=== PATIENT | male | born 1970 | race Caucasian/White ===

== ENCOUNTER 2016-11-16 18:39 | Emergency (ER) | payer MEDICARE, MEDICAID ==
[2016-11-16] MEDS ORDERED: KETOROLAC 60 MG/2 ML VIAL IM STA (20:16)
[2016-11-16] MEDS ORDERED: KETOROLAC 60 MG/2 ML VIAL ONE (20:20)
--- NOTE | 2016-11-16 20:43 | ED Physician Documentation ---
PD HPI BACK PAIN - Stated complaint Stated Complaint: BACK PX - Chief complaint Chief Complaint: Back Pain - History obtained from History obtained from: Patient - History of Present Illness Timing - onset: How many days ago (5), Chronic Timing - details: Gradual onset, Still present Pain level max: 9 Pain level now: 3 Location: Lower, Right Quality: Pain, Spasm Associated symptoms: No: Fever, Weakness, Numbness, Incontinent of urine, Unable to urinate Similar symptoms before: Work up / diagnostics, Treatment Recently seen: Not recently seen - Additional information Additional information: Patient is a 46 year old male with mulitple ER visits and landy reports for narcotic abuse who is presenting to the emergency department for right lower back pain. patient states that he has a history of a buldging disc and chronic pain. Patient states that he fell sometime last week and he still has some nagging pain. patient denies any fevers, chills, nausea, vomiting, bladder or bowel incontinence. Review of Systems Constitutional: denies: Fever, Chills Eyes: denies: Loss of vision, Photophobia Ears: denies: Ear pain, Tinnitus/ringing, Foreign body Nose: denies: Rhinorrhea / runny nose, Congestion, Sinus pressure / pain Throat: denies: Sore throat GI: denies: Abdominal Pain, Nausea, Vomiting : denies: Dysuria, Frequency, Unable to Void, Incontinent Skin: denies: Rash, Abrasion (s), Laceration (s) Musculoskeletal: reports: Back pain, Extremity pain Neurologic: denies: Focal weakness, Numbness, Head injury Immunocompromised: denies: Immunocompromised PD PAST MEDICAL HISTORY - Past Medical History Past Medical History: Yes GI: Hepatitis Psych: Anxiety Musculoskeletal: Chronic back pain - Past Surgical History Past Surgical History: Yes - Present Medications Home Medications: Ambulatory Orders Medication Instructions Recorded Confirmed No Known Home Medications [No 11/16/16 11/16/16 Known Home Medications] - Allergies Allergies/Adverse Reactions: Allergies Allergy/AdvReac Type Severity Reaction Status Date / Time No Known Drug Allergies Allergy Verified 05/19/16 20:45 - Social History Does the pt smoke?: Yes Smoking Status: Current every day smoker Does the pt drink ETOH?: No Does the pt have substance abuse?: No - Immunizations Immunizations are current?: Yes - POLST Patient has POLST: No PD ED PE NORMAL - Vitals Vital signs reviewed: Yes - General General: Alert and oriented X 3, No acute distress, Well developed/nourished - HEENT HEENT: Atraumatic, PERRL - Neck Neck: Supple, no meningeal sign, No bony TTP - Cardiac Cardiac: RRR, No murmur - Respiratory Respiratory: No respiratory distress - Abdomen Abdomen: Soft, Non tender, Non distended - Derm Derm: Normal color, Warm and dry, No rash - Extremities Extremities: No deformity, Normal ROM s pain, No edema - Neuro Neuro: Alert and oriented X 3, 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, Normal speech - Psych Psych: Normal mood, Normal affect PD ED PE EXPANDED - Back Back: Soft tissue tenderness (mild tenderness to palpation of right lower back, no ecchymosis no bruising) Results - Vitals Vitals: Vital Signs - 24 hr 11/16/16 11/16/16 18:47 20:53 Temperature 36.4 C L Heart Rate 74 82 Respiratory 18 16 Rate Blood Pressure 116/88 H 120/86 H O2 Saturation 100 99 Oxygen O2 Source Room air PD MEDICAL DECISION MAKING - ED course Complexity details: reviewed old records, reviewed results, re-evaluated patient , considered differential, d/w patient ED course: Patient was seen and examined at bedside. Patient had no traumatic findings or any type of neurological deficit. Patient was able to ambulate without any difficulty. patient was treated with toradol with good relief. Patient required no further work up at this time and was stable for discharge with outpatient follow up. Departure - Departure Disposition: 01 Home, Self Care Clinical Impression: Muscle spasm of back Condition: Good Instructions: ED Spasm Back No Trauma Follow-Up: primary,care provider [Other] - As Needed Comments: Your symptoms today are likely caused by an exacerbation of your chronic back pain. You should alternate between ice and heat for the pain and you can take motrin or tylenol as needed. You should follow up with your pmd this week for re-evaluation. You may return to the emergency department if necessary for new , worsening or uncontrollable symptoms. Discharge Date/Time: 11/16/16 20:54
[2016-11-16 20:54] VITALS: BP 120/86
== END 2016-11-16 20:54 | disposition home or self-care (01) ==
LOC: ED 18:39
DX: M62.830 Muscle spasm of back (principal); M54.5 Low back pain; G89.29 Other chronic pain; F17.200 Nicotine dependence, unspecified, uncomplicated
CPT/HCPCS: 96372; 99283

== ENCOUNTER 2016-11-17 00:10 | Emergency (ER) | payer MEDICARE, MEDICAID ==
[2016-11-17] MEDS ORDERED: ACETAMINOPHEN 500 MG TABLET PO STA (00:14)
[2016-11-17 00:16] VITALS: BP 125/83
--- NOTE | 2016-11-17 00:23 | ED Physician Documentation ---
PD HPI BACK PAIN - Stated complaint Stated Complaint: BACK PX - Chief complaint Chief Complaint: Back Pain - History obtained from History obtained from: Patient - History of Present Illness Timing - onset: Chronic Timing - details: Still present Location: Lower, Right Quality: Similar to prior episodes Associated symptoms: No: Fever, Weakness, Numbness, Incontinent of urine, Unable to urinate Recently seen: Emergency Dept - Additional information Additional information: Patient is a 46 year old male presenting for back pain. Patient was seen earlier in the evening for the same complaint. Patient denied any change in his complaints. Review of Systems Constitutional: denies: Fever, Chills Ears: denies: Ear pain, Drainage/discharge Nose: denies: Rhinorrhea / runny nose, Congestion Throat: denies: Dental pain / toothache, Oral lesions / sores : denies: Frequency, Hesitancy, Unable to Void, Incontinent Skin: denies: Rash, Lesions, Abrasion (s), Laceration (s) Musculoskeletal: reports: Back pain. denies: Extremity pain, Joint pain, Extremity swelling Neurologic: denies: Focal weakness, Numbness, Difficulty speaking Immunocompromised: denies: Immunocompromised PD PAST MEDICAL HISTORY - Past Medical History GI: Hepatitis Psych: Anxiety Musculoskeletal: Chronic back pain - Past Surgical History Past Surgical History: Yes - Present Medications Home Medications: Ambulatory Orders Medication Instructions Recorded Confirmed No Known Home Medications [No 11/16/16 11/16/16 Known Home Medications] - Allergies Allergies/Adverse Reactions: Allergies Allergy/AdvReac Type Severity Reaction Status Date / Time No Known Drug Allergies Allergy Verified 05/19/16 20:45 - Social History Does the pt smoke?: Yes Smoking Status: Current every day smoker Does the pt drink ETOH?: No Does the pt have substance abuse?: No - Immunizations Immunizations are current?: Yes - POLST Patient has POLST: No PD ED PE NORMAL - Vitals Vital signs reviewed: Yes - General General: Alert and oriented X 3, No acute distress - HEENT HEENT: Atraumatic, PERRL, Pharynx benign - Neck Neck: Supple, no meningeal sign - Respiratory Respiratory: No respiratory distress - Derm Derm: Normal color, Warm and dry - Extremities Extremities: No deformity, Normal ROM s pain, No edema - Neuro Neuro: Alert and oriented X 3, No motor deficit, No sensory deficit, Normal speech - Psych Psych: Normal mood, Normal affect Results - Vitals Vitals: Vital Signs - 24 hr 11/17/16 00:15 Temperature 37.0 C Heart Rate 92 Respiratory 16 Rate Blood Pressure 125/83 H O2 Saturation 97 Oxygen O2 Source Room air PD MEDICAL DECISION MAKING - ED course Complexity details: reviewed old records, re-evaluated patient, d/w patient ED course: patient was told that he would not be getting narcotics, benzos or muscle relaxers. tylenol was ordered and patient eloped out of the emergency department Departure - Departure Disposition: Home, Self Care Clinical Impression: Back pain Condition: Good
== END 2016-11-17 00:27 | disposition left against medical advice (07) ==
LOC: ED 00:10
DX: M54.5 Low back pain (principal); G89.29 Other chronic pain; F17.200 Nicotine dependence, unspecified, uncomplicated
CPT/HCPCS: 99282

== ENCOUNTER 2020-10-30 14:17 | Emergency (ER) | payer MEDICAID, MEDICARE ==
--- NOTE | 2020-10-30 14:25 | ED Physician Documentation ---
PD HPI Fall - Stated complaint Stated Complaint: back neck px, fall - History obtained from History obtained from: Patient - History of Present Illness Mechanism of injury: Slipped (He says he slipped and fell from several feet up and landed onto his buttocks with pain in the low back. He is having pain in the low back with spasms at times causing his legs to give out. That occurred yesterday and he fell to the front striking his left face with laceration face/pain neck.) Where injury occurred: Home Timing - onset: How many days ago (initial fall several days ago with injury to low back, and fall from walking yesterday, injuring left face and lower neck. No numbness nor weakness.) Injury(ies) location: Face, Neck, Back (lower lumbar area.) Quality of pain: Pain, Aching Associated symptoms: Other (laceration left forehead that is still bleeding at times.). No: LOC, AMS, Weakness, Paresthesias Symptoms improve with: Rest Worsens with: Movement Contributing factors: No: Anticoagulated, Intoxicated Similar symptoms before: Has not had sx before Recently seen: Not recently seen Review of Systems Constitutional: denies: Fever Nose: denies: Rhinorrhea / runny nose, Congestion Throat: denies: Sore throat Cardiac: denies: Chest pain / pressure Respiratory: denies: Cough GI: denies: Abdominal Pain Skin: reports: Laceration (s) (left lower forehead above eyebrow.) Musculoskeletal: reports: Neck pain (lower), Back pain (lumbar) Neurologic: denies: Focal weakness, Numbness PD PAST MEDICAL HISTORY - Past Medical History Cardiovascular: None Respiratory: None Neuro: None Endocrine/Autoimmune: None GI: Hepatitis Psych: Anxiety Musculoskeletal: Chronic back pain - Past Surgical History Past Surgical History: Yes - Present Medications Home Medications: Ambulatory Orders Medication Instructions Recorded Confirmed HYDROcod/ACETAM 5/325 [[place] 5/325] 1 ea PO Q6H PRN #18 tablet 10/30/20 Ibuprofen [Motrin] 600 mg PO TID PRN #25 tab 10/30/20 tiZANidine [Zanaflex] 4 mg PO Q8H PRN #25 tablet 10/30/20 - Allergies Allergies/Adverse Reactions: Allergies Allergy/AdvReac Type Severity Reaction Status Date / Time No Known Drug Allergies Allergy Verified 10/30/20 14:31 - Living Situation Living Arrangement: reports: At home - Social History Does the pt smoke?: Yes Smoking Status: Current every day smoker Does the pt drink ETOH?: No Does the pt have substance abuse?: No - Immunizations Immunizations are current?: Yes - POLST Patient has POLST: No PD ED PE NORMAL - Vitals Vital signs reviewed: Yes - General General: Alert and oriented X 3, Well developed/nourished - HEENT HEENT: PERRL, EOMI, Other (Left supraorbital area with bruising and swelling. Abrasion lateral to orbital area. There is 1.5 cm laceration with dried blood at lower forehead above lateral part of eyebrow. No FBs. No bleeding right now. Full thickness skin lac with edges close. ) - Neck Neck: Supple, no meningeal sign, No adenopathy, Other (some tenderness lower cervical area without deformity. Mainly muscles to sides of midline. ) - Cardiac Cardiac: RRR, No murmur - Respiratory Respiratory: Clear bilaterally - Abdomen Abdomen: Soft, Non tender - Back Back: No CVA TTP, Other (There is some tenderness to palpation lower lumbar area without deformity. Guarded ROM of the muscles. Tailbone not tender. ) - Derm Derm: Normal color, Warm and dry - Neuro Neuro: Alert and oriented X 3, No motor deficit, No sensory deficit, Normal speech Results - Vitals Vitals: Vital Signs - 24 hr 10/30/20 10/30/20 14:28 16:42 Temperature 36.8 C Heart Rate 77 100 Respiratory 18 16 Rate Blood Pressure 119/76 115/75 O2 Saturation 99 100 Oxygen O2 Source Room air - Rads (name of study) head CT Radiology: Prelim report reviewed (no ICH nor orbital fractures), See rad report cervical CT Radiology: Prelim report reviewed (no acute fractures), See rad report lumbar CT Radiology: Prelim report reviewed (no acute fractures), See rad report Procedures - Laceration (location) left lower forehead Length in cm: 1.5 Wound type: Irregular, Clean Neurovascular status: Sensory intact, Motor intact Wound preparation: Irrigated copiously NS, Wound explored, To the base. No: FB identified Skin layer closure: Dermabond, Steri strips Other: Patient tolerated well, No complications, Neurovascular intact, Tetanus UTD PD MEDICAL DECISION MAKING - ED course Complexity details: reviewed results, considered differential, d/w patient Departure - Departure Disposition: 01 Home, Self Care Clinical Impression: Low back strain Qualifiers: Encounter type: initial encounter Qualified Code(s): S39.012A - Strain of muscle, fascia and tendon of lower back, initial encounter Neck strain Qualifiers: Encounter type: initial encounter Qualified Code(s): S16.1XXA - Strain of mus efraín, fascia and tendon at neck level, initial encounter Facial contusion Qualifiers: Encounter type: initial encounter Qualified Code(s): S00.83XA - Contusion of other part of head, initial encounter Forehead laceration Qualifiers: Encounter type: initial encounter Qualified Code(s): S01.81XA - Laceration without foreign body of other part of head, initial encounter Fall from slip, trip, or stumble Qualifiers: Encounter type: initial encounter Qualified Code(s): W01.0XXA - Fall on same level from slipping, tripping and stumbling without subsequent striking against object, initial encounter Condition: Stable Record reviewed to determine appropriate education?: Yes Instructions: ED Sprain Strain Lumbar, ED Laceration Facial Skin Glue, ED Sprain Strain Neck Follow-Up: [facility] [Provider Group] Prescriptions: Ibuprofen [Motrin] 600 mg PO TID PRN #25 tab PRN Reason: Pain HYDROcod/ACETAM 5/325 [[place] 5/325] 1 ea PO Q6H PRN #18 tablet PRN Reason: Pain tiZANidine [Zanaflex] 4 mg PO Q8H PRN #25 tablet PRN Reason: Spasms Comments: Keep the Steri-Strips clean and dry and allow them to fall off on their own after several days to week. This should allow for time for the wound to close. For the neck and back, heat and gentle stretching periodically to reduce stiffness. Anti-inflammatories such as ibuprofen 3 times a day. To that he can add muscle relaxant tizanidine for stiffness and spasm. To that add Tylenol every 4-6 hours or hydrocodone if needed for worse pain. I would anticipate improvement over the next several days to week. Follow-up if not better in that timeframe. Discharge Date/Time: 10/30/20 16:53
[2020-10-30] MEDS ORDERED: ACETAMINOPHEN 325 MG TABLET PO STA (14:49)
[2020-10-30] MEDS ORDERED: IBUPROFEN 600 MG TABLET PO STA (14:49)
[2020-10-30] MEDS ORDERED: CHERRY SYRUP 10 ML UDC PO ONE (16:18)
[2020-10-30] MEDS ORDERED: DEXAMETHASONE 10 MG/ML VIAL PO STA (16:18)
[2020-10-30] MEDS ORDERED: HYDROcod/ACETAM 5/325 MG TABLET PO STA (16:18)
[2020-10-30] MEDS ORDERED: LORazepam 1 MG TABLET PO STA (16:18)
--- NOTE | 2020-10-30 16:26 | CT Report ---
PROCEDURE: HEAD WO INDICATIONS: fall struck left frontal/periorbital TECHNIQUE: Noncontrast 4.5 mm thick angled axial sections acquired from the foramen magnum to the vertex. For r adiation dose reduction, the following was used: automated exposure control, adjustment of mA and/or kV according to patient size. COMPARISON: None. FINDINGS: Image quality: Excellent. CSF spaces: Ventricles and extra-axial CSF spaces are mildly prominent consistent with cerebral atrop hy, normal for patient's age. No focal extra-axial fluid collection. Brain: No midline shift. No intracranial masses or hemorrhage. Cage-white matter interface is norm al. Skull and face: Calvarium and visualized facial bones are intact, without suspicious lesions. There is mild soft tissue swelling along the left zygoma, orbit, and inferior aspect of the left frontal b one. Sinuses: Visualized sinuses and mastoids are clear. IMPRESSION: Mild soft tissue swelling overlying the left side of the orbit, zygoma, and frontal bone. No acute in tracranial hemorrhage or skull fracture. Reviewed by: Eric Rahman DO on 10/30/2020 3:25 PM [facility] Approved by: Eric Rahman DO on 10/30/2020 3:25 PM [facility] Station ID: [id number]
--- NOTE | 2020-10-30 16:30 | CT Report ---
PROCEDURE: CERVICAL SPINE WO INDICATIONS: fall with struck head; neck pain TECHNIQUE: Noncontrast 3 mm thick sections acquired from the skull base to the T4 level. Sagittal and coronal r eformats were then constructed. For radiation dose reduction, the following was used: automated exp osure control, adjustment of mA and/or kV according to patient size. COMPARISON: None. FINDINGS: Image quality: Excellent. Bones: No fractures or dislocations. Visualized superior ribs are intact. Cervical alignment is wi thin normal limits. Intervertebral disc space narrowing worse at C4-C5 and C7-T1 with endplate degene rative changes. No significant spinal canal stenosis. There is mild bony neural foraminal stenosis bi laterally at C4-C5 and on the left at C7-T1. Soft tissues: Prevertebral soft tissues are normal in thickness. No paravertebral hematomas. No ap ical pneumothoraces. IMPRESSION: No acute fracture or traumatic subluxation. Degenerative cervical spondylopathy worse at C4-C5 and C7-T1. Reviewed by: Eric Rahman DO on 10/30/2020 3:28 PM [facility] Approved by: Eric Rahman DO on 10/30/2020 3:28 PM [facility] Station ID: [id number]
--- NOTE | 2020-10-30 16:33 | CT Report ---
PROCEDURE: LUMBAR SPINE WO INDICATIONS: fall with low back pain TECHNIQUE: Noncontrast 3 mm thick sections acquired from the T12 level to the sacrum. Sagittal and coronal refo rmats were constructed. For radiation dose reduction, the following was used: automated exposure co ntrol, adjustment of mA and/or kV according to patient size. COMPARISON: None. FINDINGS: Image quality: Excellent. Bones: There is normal bony alignment. No acute vertebral body compression fractures. No suspiciou s lytic or blastic bony lesions. Central spinal caliber is of normal overall caliber. No pars defec ts. Vertebral body heights are maintained. T12-S1: Mild intervertebral disc space loss at L5-S1. Mild endplate degenerative changes throughout t he lumbar spine. No significant bony spinal canal or neural foraminal stenosis. Soft tissues: No retroperitoneal masses or hematomas. Visualized aorta is normal in caliber. IMPRESSION: No acute fracture or subluxation. Very mild degenerative changes of the lumbar spine. Reviewed by: Eric Rahman DO on 10/30/2020 3:32 PM [facility] Approved by: Eric Rahman DO on 10/30/2020 3:32 PM [facility] Station ID: [id number]
[2020-10-30 16:43] VITALS: BP 115/75
== END 2020-10-30 16:53 | disposition home or self-care (01) ==
LOC: ED 14:17
DX: S01.81XA Laceration without foreign body of other part of head, initial encounter (principal); S39.012A Strain of muscle, fascia and tendon of lower back, initial encounter; S16.1XXA Strain of muscle, fascia and tendon at neck level, initial encounter; W01.0XXA Fall on same level from slipping, tripping and stumbling without subsequent striking against object, initial encounter; W17.89XA Other fall from one level to another, initial encounter; Y92.009 Unspecified place in unspecified non-institutional (private) residence as the place of occurrence of the external cause; F17.200 Nicotine dependence, unspecified, uncomplicated
CPT/HCPCS: 12011; 70450; 72125; 72131; 99284; A9270; J8499

== ENCOUNTER 2020-10-30 22:22 | Emergency (ER) | payer MEDICAID, MEDICARE ==
--- NOTE | 2020-10-30 23:17 | ED Physician Documentation ---
PD HPI BACK PAIN - Stated complaint Stated Complaint: BACK PX - Chief complaint Chief Complaint: Trauma Ch/Bk - History obtained from History obtained from: Patient - History of Present Illness Timing - onset: How many months ago (1) Timing - duration: Months (1) Timing - details: Gradual onset, Still present, Waxing and waning Location: Lower Quality: Pain, Spasm, Sharp Associated symptoms: No: Fever, Weakness, Numbness, Incontinent of urine, Unable to urinate, Hematuria, Incontinent of stool Improves with: Rest, Position, Meds Worsened by: Movement Contributing factors: Other (walking most of the day homeless) Similar symptoms before: Diagnosis (excessive walking) Recently seen: Emergency Dept - Additional information Additional information: 50-year-old 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 He has had his legs give out periodically and he has had 2 falls in the past 2 days. He has a plan to go back to [place] on Sunday and has a plan to visit someone in [place] tomorrow. He is on foot and there is no public transport on Sunday. The patient has a prior history of walking sometimes up to 25 miles a day and frequent visits to emergency facilities. Today earlier he was seen in the emergency department for a fall and he had sutures to his eyebrow as well as imaging done and he was prescribed pain medication a muscle relaxant. Review of Systems Constitutional: denies: Fever Eyes: denies: Decreased vision Ears: denies: Ear pain Nose: denies: Rhinorrhea / runny nose, Congestion Throat: denies: Sore throat Cardiac: denies: Chest pain / pressure, Palpitations Respiratory: denies: Dyspnea, Cough GI: denies: Abdominal Pain, Nausea, Vomiting : denies: Dysuria, Frequency Skin: denies: Rash Musculoskeletal: reports: Back pain. denies: Neck pain Neurologic: denies: Generalized weakness, Focal weakness, Numbness PD PAST MEDICAL HISTORY - Past Medical History Cardiovascular: None Respiratory: None Neuro: None Endocrine/Autoimmune: None GI: Hepatitis : None HEENT: None Psych: Anxiety Musculoskeletal: Chronic back pain Derm: None - Past Surgical History Past Surgical History: Yes - Present Medications Home Medications: Ambulatory Orders Medication Instructions Recorded Confirmed HYDROcod/ACETAM 5/325 [[place] 5/325] 1 ea PO Q6H PRN #18 tablet 10/30/20 10/30/20 Ibuprofen [Motrin] 600 mg PO TID PRN #25 tab 10/30/20 10/30/20 tiZANidine [Zanaflex] 4 mg PO Q8H PRN #25 tablet 10/30/20 10/30/20 - Allergies Allergies/Adverse Reactions: Allergies Allergy/AdvReac Type Severity Reaction Status Date / Time No Known Drug Allergies Allergy Verified 10/30/20 22:47 - Social History Does the pt smoke?: Yes Smoking Status: Current every day smoker Does the pt drink ETOH?: No Does the pt have substance abuse?: No - Immunizations Immunizations are current?: Yes - POLST Patient has POLST: No PD ED PE NORMAL - Vitals Vital signs reviewed: Yes (cold) - General General: Alert and oriented X 3, No acute distress, Well developed/nourished, Other (The patient has some slow and halting speech some disorganization of thought is apparent) - HEENT HEENT: PERRL, EOMI, Other (There is a healing wound with ecchymosis to the left eyebrow laterally ) - Neck Neck: Supple, no meningeal sign, No bony TTP - Cardiac Cardiac: RRR, No murmur - Respiratory Respiratory: No respiratory distress, Clear bilaterally - Abdomen Abdomen: Normal bowel sounds, Soft, Non tender, Non distended, No organomegaly - Derm Derm: Normal color, Warm and dry, No rash - Extremities Extremities: No deformity, No edema - Neuro Neuro: Alert and oriented X 3, 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, No motor deficit, No sensory deficit, Normal speech Eye Opening: Spontaneous Motor: Obeys Commands Verbal: Oriented GCS Score: 15 - Psych Psych: Normal mood, Normal affect Results - Vitals Vitals: Vital Signs - 24 hr 10/30/20 22:35 Temperature 35.9 C L Heart Rate 92 Respiratory 16 Rate Blood Pressure 112/71 O2 Saturation 99 Oxygen O2 Source Room air - Labs Labs: Laboratory Tests 10/30/20 10/30/20 00:06 00:06 WBC 13.7 H RBC 4.88 Hgb 15.1 Hct 44.7 MCV 91.6 MCH 30.9 MCHC 33.8 RDW 12.3 Plt Count 172 MPV 9.5 Neut # (Auto) 12.5 H Lymph # (Auto) 0.9 L [place] # (Auto) 0.2 Eos # (Auto) 0.0 Baso # (Auto) 0.0 Absolute Nucleated RBC 0.00 Nucleated RBC % 0.0 Sodium 138 Potassium 3.9 Chloride 98 L Carbon Dioxide 21 Anion Gap 19.0 H BUN 19 Creatinine 0.9 Estimated GFR (MDRD) 90 Glucose 84 Calcium 9.0 Total Bilirubin 1.5 H AST 128 H ALT 54 Alkaline Phosphatase 51 Total Protein 8.6 H Albumin 4.9 Globulin 3.7 Albumin/Globulin Ratio 1.3 Lipase 26 Procedures - IVC sono (time) 2300 Bedside IVC sono: IVC measures (cm) (0.88), IVC collapsed c insp (cm) (complete), Dehydration (est 2 lter deficit) PD MEDICAL DECISION MAKING - ED course Complexity details: reviewed old records, reviewed results, re-evaluated patient, considered differential, d/w patient ED course: 50-year-old homeless schizophrenic male who walks except excessively has been walking excessively and is now developed back pain and he is having his legs give out on him and he is found to be significantly dehydrated on interrogation of the inferior vena cava. He is administered some IV fluid and his electrolytes were checked he was given some dexamethasone and Toradol. Departure - Departure Disposition: 01 Home, Self Care Clinical Impression: Dehydration Sciatica Qualifiers: Laterality: bilateral Qualified Code(s): M54.31 - Sciatica, right side; M54.32 - Sciatica, left side Condition: Stable Instructions: ED Dehydration, ED Sciatica Follow-Up: Your, doctor [Other] Comments: Today it appears you have sciatica to both sides and the recommendation is to reduce your level of activity, do some stretches of your back and the dexamethasone you were given here tonight should help overnight. Reduce the amount of walking you are doing for several days at least. We found you were de hydrated today and the recommendation is to drink more fluids especially if you are going to be walking. The dehydration has likely contributed to your symptoms and falls.
[2020-10-30] MEDS ORDERED: KETOROLAC 30 MG/ML VIAL IVP STA (23:57)
[2020-10-30] MEDS ORDERED: DEXAMETHASONE 10 MG/ML VIAL IVP STA (23:57)
[2020-10-30] MEDS ORDERED: SODIUM CHLORIDE 0.9% 1,000 ML IV STA (23:57)
[2020-10-31 00:17] LABS: BASOPHILS % (AUTO) 0.1 %; HGB - HEMOGLOBIN 15.1 g/dL (14.0-18.0); LYMPHOCYTES # (AUTO) 0.9 10^3/uL (1.5-3.5); LYMPHOCYTES % (AUTO) 6.8 %; MEAN CORPUSCULAR HEMOGLOBIN 30.9 pg (27.0-31.0); MEAN CORPUSCULAR HGB CONC 33.8 g/dL (32.0-36.0); MEAN CORPUSCULAR VOLUME 91.6 fL (80.0-94.0); MEAN PLATELET VOLUME 9.5 fL (7.4-11.4); MONOCYTES # (AUTO) 0.2 10^3/uL (0.0-1.0); MONOCYTES % (AUTO) 1.3 %; NEUTROPHILS # (AUTO) 12.5 10^3/uL (1.5-6.6); NEUTROPHILS % (AUTO) 91.4 %; PLT - PLATELET COUNT 172 10^3/uL (130-450); RED BLOOD COUNT 4.88 10^6/uL (4.70-6.10); RED CELL DISTRIBUTION WIDTH 12.3 % (12.0-15.0); WHITE BLOOD COUNT 13.7 x10^3/uL (4.8-10.8)
[2020-10-31 00:28] LABS: ALBUMIN 4.9 g/dL (3.2-5.5); ALBUMIN/GLOBULIN RATIO 1.3 (1.0-2.2); BILIRUBIN,TOTAL 1.5 mg/dL (0.2-1.0); CREATININE 0.9 mg/dL (0.6-1.2); TOTAL PROTEIN 8.6 g/dL (6.7-8.2)
[2020-10-31 01:48] VITALS: BP 134/73
== END 2020-10-31 02:09 | disposition home or self-care (01) ==
LOC: ED 22:22
DX: M54.31 Sciatica, right side (principal); M54.32 Sciatica, left side; E86.0 Dehydration; Z59.0 Homelessness; F20.9 Schizophrenia, unspecified; F17.200 Nicotine dependence, unspecified, uncomplicated
CPT/HCPCS: 80053; 83690; 85025; 96361; 96374; 96375

== ENCOUNTER 2020-10-31 16:58 | Emergency (ER) | payer MEDICAID, MEDICARE ==
[2020-10-31 17:06] VITALS: BP 170/100
--- NOTE | 2020-10-31 17:21 | ED Physician Documentation ---
History of Present Illness - Stated complaint Stated Complaint: LAC ABOVE L EYE - Chief complaint Chief Complaint: Laceration - History obtained from History obtained from: Patient - History of Present Illness Timing: Yesterday Pain level max: 0 Pain level now: 0 - Additonal information Additional information: 50-year-old male history of schizophrenia presents to the emergency department with a laceration above his left eyebrow that was sustained 2 days ago. Steri- Strips were applied. He states he is here for a wound check. He states that there was a small amount of blood earlier today. No recurrent injury. No fever. No other drainage. Nothing makes it better or worse. Review of Systems Constitutional: denies: Fever, Chills PD PAST MEDICAL HISTORY - Past Medical History Past Medical History: Yes Cardiovascular: None Respiratory: None Neuro: None Endocrine/Autoimmune: None GI: Hepatitis : None HEENT: None Psych: Anxiety Musculoskeletal: Chronic back pain Derm: None - Past Surgical History Past Surgical History: Yes - Present Medications Home Medications: Ambulatory Orders Medication Instructions Recorded Confirmed HYDROcod/ACETAM 5/325 [[place] 5/325] 1 ea PO Q6H PRN #18 tablet 10/30/20 10/30/20 Ibuprofen [Motrin] 600 mg PO TID PRN #25 tab 10/30/20 10/30/20 tiZANidine [Zanaflex] 4 mg PO Q8H PRN #25 tablet 10/30/20 10/30/20 - Allergies Allergies/Adverse Reactions: Allergies Allergy/AdvReac Type Severity Reaction Status Date / Time No Known Drug Allergies Allergy Verified 10/31/20 17:00 - Social History Does the pt smoke?: Yes Smoking Status: Current every day smoker Does the pt drink ETOH?: No Does the pt have substance abuse?: No - Immunizations Immunizations are current?: Yes - POLST Patient has POLST: No PD ED PE NORMAL - Vitals Vital signs reviewed: Yes - General General: Alert and oriented X 3, No acute distress - HEENT HEENT: Moist mucous membranes - Derm Derm: Warm and dry - Neuro Neuro: Alert and oriented X 3 - Free text exam Free text exam: Healing laceration above the left eye, lateral to the left eyebrow. No signs of infection. No drainage. Steri-Strips are intact and clean. No blood or stain on the Steri-Strip. Results - Vitals Vitals: Vital Signs - 24 hr 10/31/20 17:00 Temperature 36.5 C Heart Rate 96 Respiratory 16 Rate Blood Pressure 170/100 H O2 Saturation 100 Oxygen O2 Source Room air PD MEDICAL DECISION MAKING - ED course Complexity details: considered differential, d/w patient ED course: Wound appears to be healing normally at this time. We will have him follow-up with his doctor for further care. This document was made in part using voice recognition software. While efforts are made to proofread this document, sound alike and grammatical errors may occur. Departure - Departure Disposition: Home, Self Care Clinical Impression: Eyebrow laceration Qualifiers: Encounter type: initial encounter Laterality: left Qualified Code(s): S01.112A - Laceration without foreign body of left eyelid and periocular area, initial encounter Condition: Good Instructions: ED Laceration Facial Sutr Tape Follow-Up: your,doctor in 1 week [Other] Comments: Your wound is clean and dry tonight. Continue to keep the wound clean. Discharge Date/Time: 10/31/20 17:44
== END 2020-10-31 17:44 | disposition home or self-care (01) ==
LOC: ED 16:58
DX: S01.112D Laceration without foreign body of left eyelid and periocular area, subsequent encounter (principal); Z59.0 Homelessness; F17.200 Nicotine dependence, unspecified, uncomplicated; F20.9 Schizophrenia, unspecified
CPT/HCPCS: 99282

== ENCOUNTER 2021-02-04 18:48 | Emergency (ER) | payer MEDICARE, MEDICAID ==
--- OUTSIDE RECORDS SUMMARY | 2021-02-04 18:52 | EXTERNAL MEDICAL SUMMARY RPT | Continuity of Care Document ---
:1970 Demographics Phone Unavailable Preferred Language Unknown Marital Status Unknown Restorationist Affiliation Unknown Race Unknown Ethnic Group Unknown Author Organization [facility] Address [address] [place] [address] Phone Problems date description facility [id number] MCKEON, FATIGUE AND SI [facility] [id number] HEADACHE UNABLE TO SLEEP [facility] [id number] Suicidal [facility] [id number] Homicidal [facility] [id number] ANXIETY [facility] [id number] mental health [facility] [id number] Paranoid [facility] [id number] Anxiety [facility] [id number] mental health eval [facility] [id number] bck pain [facility] [id number] mhe [facility] [id number] Thumb Swelling [facility] [id number] Mental Health Evaluation [facility] [id number] Depression [facility] [id number] Anxiety [facility] [id number] MENTAL HEALTH [facility] [phone] right ankle injury [facility] Social History date description facility [id number]
[2021-02-04] MEDS ORDERED: KETOROLAC 60 MG/2 ML VIAL IM STA (18:58)
--- NOTE | 2021-02-04 18:59 | ED Physician Documentation ---
PD HPI MHE - Stated complaint Stated Complaint: MCKEON - History obtained from History obtained from: Patient - Additional information Additional information: 50-year-old gentleman with history of schizophrenia presents with suicidal ideation and headache. He has had 3 days of biparietal headache which is throbbing and comes and goes. Not it seems that it is notes to his and on and off for 2 without a cut his wrist or his throat. He is never attempted suicide. DON E form shows that he has had 32 visits to the emergency department last 12 months, mostly with similar chief complaints of suicidal, anxiety, poor sleep, exacerbations of schizophrenia. Review of Systems Ten Systems: 10 systems reviewed and negative Constitutional: reports: Chills, Fatigue. denies: Fever Nose: denies: Rhinorrhea / runny nose Cardiac: denies: Chest pain / pressure, Palpitations Respiratory: denies: Dyspnea, Cough PD PAST MEDICAL HISTORY - Past Medical History Cardiovascular: None Respiratory: None Neuro: None Endocrine/Autoimmune: None GI: Hepatitis : None HEENT: None Psych: Anxiety Musculoskeletal: Chronic back pain Derm: None - Past Surgical History Past Surgical History: Yes - Allergies Allergies/Adverse Reactions: Allergies Allergy/AdvReac Type Severity Reaction Status Date / Time No Known Drug Allergies Allergy Verified 02/04/21 19:04 - Social History Does the pt smoke?: Yes Smoking Status: Current every day smoker Does the pt drink ETOH?: No Does the pt have substance abuse?: No - Immunizations Immunizations are current?: Yes - POLST Patient has POLST: No PD ED PE NORMAL - Vitals Vital signs reviewed: Yes - General General: Alert and oriented X 3, No acute distress - HEENT HEENT: PERRL, EOMI - Neck Neck: Supple, no meningeal sign, No bony TTP - Cardiac Cardiac: RRR, No murmur - Respiratory Respiratory: No respiratory distress, Clear bilaterally - Abdomen Abdomen: Soft, Non tender - Back Back: No CVA TTP, No spinal TTP - Derm Derm: Normal color, Warm and dry - Extremities Extremities: No edema, No calf tenderness / cord - Neuro Neuro: Alert and oriented X 3, No motor deficit, No sensory deficit, Normal speech Results - Vitals Vitals: Vital Signs - 24 hr 02/04/21 02/05/21 02/05/21 19:00 01:59 13:52 Temperature 37.2 C 37.1 C 36.9 C Heart Rate 107 H 89 82 Respiratory 16 16 16 Rate Blood Pressure 155/99 H 132/79 H 144/97 H O2 Saturation 100 100 100 Oxygen O2 Source Room air - Labs Labs: Laboratory Tests 02/04/21 02/04/21 02/04/21 17:15 17:15 17:15 WBC 14.9 H RBC 5.12 Hgb 14.2 Hct 45.6 MCV 89.1 MCH 27.7 MCHC 31.1 L RDW 13.8 Plt Count 257 MPV 9.7 Neut # (Auto) 11.7 H Lymph # (Auto) 2.6 [place] # (Auto) 0.6 Eos # (Auto) 0.0 Baso # (Auto) 0.0 Absolute Nucleated RBC 0.00 Nucleated RBC % 0.0 Sodium 141 Potassium 3.6 Chloride 108 Carbon Dioxide 26 Anion Gap 7.0 BUN 12 Creatinine 0.7 Estimated GFR (MDRD) 120 Glucose 134 H Calcium 9.7 Total Bilirubin 0.5 AST 14 ALT 15 Alkaline Phosphatase 91 Total Protein 7.9 Albumin 4.3 Globulin 3.6 Albumin/Globulin Ratio 1.2 Lipase 37 TSH 1.10 Urine Color Urine Clarity Urine pH Ur Specific [place] Urine Protein Urine Glucose (UA) Urine Ketones Urine Occult Blood Urine Nitrite Urine Bilirubin Urine Urobilinogen Ur Leukocyte Esterase Ur Microscopic Review Urine Culture Comments Nasal Adenovirus (PCR) Nasal B. parapertussis DNA (PCR) Nasal Coronavir 229E PCR Nasal Coronavir HKU1 PCR Nasal Coronavir NL63 PCR Nasal Coronavir OC43 PCR Nasal Enterovir/Rhinovir PCR Nasal Influenza B PCR Nasal Influenza A PCR Nasal Parainfluen 1 PCR Nasal Parainfluen 2 PCR Nasal Parainfluen 3 PCR Nasal Parainfluen 4 PCR Nasal RSV (PCR) Nasal B.pertussis DNA PCR Nasal C.pneumoniae (PCR) Maynor Human Metapneumo PCR Nasal M.pneumoniae (PCR) Nasal SARS-CoV-2 (PCR) Salicylates < 6.0 Urine Opiates Screen Ur Oxycodone Screen Urine Methadone Screen Ur Propoxyphene Screen Acetaminophen 28 Ur Barbiturates Screen Ur Tricyclics Screen Ur Phencyclidine Scrn Ur Amphetamine Screen U Methamphetamines Scrn U Benzodiazepines Scrn Urine Cocaine Screen U Cannabinoids Screen Ethyl Alcohol < 5.0 02/04/21 02/04/21 19:15 19:15 WBC RBC Hgb Hct MCV MCH MCHC RDW Plt Count MPV Neut # (Auto) Lymph # (Auto) [place] # (Auto) Eos # (Auto) Baso # (Auto) Absolute Nucleated RBC Nucleated RBC % Sodium Potassium Chloride Carbon Dioxide Anion Gap BUN Creatinine Estimated GFR (MDRD) Glucose Calcium Total Bilirubin AST ALT Alkaline Phosphatase Total Protein Albumin Globulin Albumin/Globulin Ratio Lipase TSH Urine Color YELLOW Urine Clarity CLEAR Urine pH 5.5 Ur Specific [place] >=1.030 H Urine Protein NEGATIVE Urine Glucose (UA) NEGATIVE Urine Ketones NEGATIVE Urine Occult Blood NEGATIVE Urine Nitrite NEGATIVE Urine Bilirubin NEGATIVE Urine Urobilinogen 0.2 (NORMAL) Ur Leukocyte Esterase NEGATIVE Ur Microscopic Review NOT INDICATED Urine Culture Comments NOT INDICATED Nasal Adenovirus (PCR) NOT DETECTED Nasal B. parapertussis DNA (PCR) NOT DETECTED Nasal Coronavir 229E PCR NOT DETECTED Nasal Coronavir HKU1 PCR NOT DETECTED Nasal Coronavir NL63 PCR NOT DETECTED Nasal Coronavir OC43 PCR NOT DETECTED Nasal Enterovir/Rhinovir PCR NOT DETECTED Nasal Influenza B PCR NOT DETECTED Nasal Influenza A PCR NOT DETECTED Nasal Parainfluen 1 PCR NOT DETECTED Nasal Parainfluen 2 PCR NOT DETECTED Nasal Parainfluen 3 PCR NOT DETECTED Nasal Parainfluen 4 PCR NOT DETECTED Nasal RSV (PCR) NOT DETECTED Nasal B.pertussis DNA PCR NOT DETECTED Nasal C.pneumoniae (PCR) NOT DETECTED Maynor Human Metapneumo PCR NOT DETECTED Nasal M.pneumoniae (PCR) NOT DETECTED Nasal SARS-CoV-2 (PCR) NOT DETECTED Salicylates Urine Opiates Screen NEGATIVE Ur Oxycodone Screen NEGATIVE Urine Methadone Screen NEGATIVE Ur Propoxyphene Screen NEGATIVE Acetaminophen Ur Barbiturates Screen NEGATIVE Ur Tricyclics Screen NEGATIVE Ur Phencyclidine Scrn NEGATIVE Ur Amphetamine Screen NEGATIVE U Methamphetamines Scrn NEGATIVE U Benzodiazepines Scrn NEGATIVE Urine Cocaine Screen NEGATIVE U Cannabinoids Screen NEGATIVE Ethyl Alcohol PD MEDICAL DECISION MAKING - ED course ED course: 50-year-old gentleman with history of schizophrenia homelessness and emergency department use presents with headache which by all accounts seems benign, but also is suicidal with plan. Telepsychiatric consultation done and turned over to Dr. Easton at shift change on February 04 for further evaluation and management. Update, February 05 at 4 PM. He has been accepted to [facility]. Telepsychiatric consult was done overnight and he is receiving Zyprexa as requested here. Departure - Departure Disposition: 65 Psych Hosp/Unit DC/Xfer Clinical Impression: Suicidal ideation Schizophrenia Qualifiers: Schizophrenia type: paranoid schizophrenia Qualified Code(s): F20.0 - Paranoid schizophrenia Condition: Stable
--- OUTSIDE RECORDS SUMMARY | 2021-02-04 19:03 | EXTERNAL MEDICAL SUMMARY RPT | Continuity of Care Document ---
:1970 Demographics Phone Unavailable Preferred Language Unknown Marital Status Unknown Confucianist Affiliation Unknown Race Unknown Ethnic Group Unknown Author Organization [facility] Address [address] [place] [address] Phone Problems date description facility [id number] MCKEON, FATIGUE AND SI [facility] [id number] HEADACHE UNABLE TO SLEEP [facility] [id number] Suicidal [facility] [id number] Homicidal [facility] [id number] ANXIETY [facility] [id number] mental health [facility] [id number] Paranoid [facility] [id number] Anxiety [facility] [id number] mental health eval [facility] [id number] bck pain [facility] [id number] mhe [facility] [id number] Thumb Swelling [facility] [id number] Mental Health Evaluation [facility] [id number] Depression [facility] [id number] Anxiety [facility] [phone] MENTAL HEALTH [facility] [id number] right ankle injury [facility] Social History date description facility [phone]
[2021-02-04 19:19] LABS: BASOPHILS % (AUTO) 0.3 %; EOSINOPHILS % (AUTO) 0.1 %; HCT - HEMATOCRIT 45.6 % (42.0-52.0); HGB - HEMOGLOBIN 14.2 g/dL (14.0-18.0); LYMPHOCYTES # (AUTO) 2.6 10^3/uL (1.5-3.5); LYMPHOCYTES % (AUTO) 17.4 %; MEAN CORPUSCULAR HEMOGLOBIN 27.7 pg (27.0-31.0); MEAN CORPUSCULAR HGB CONC 31.1 g/dL (32.0-36.0); MEAN CORPUSCULAR VOLUME 89.1 fL (80.0-94.0); MEAN PLATELET VOLUME 9.7 fL (7.4-11.4); MONOCYTES # (AUTO) 0.6 10^3/uL (0.0-1.0); MONOCYTES % (AUTO) 3.8 %; NEUTROPHILS # (AUTO) 11.7 10^3/uL (1.5-6.6); NEUTROPHILS % (AUTO) 78.3 %; PLT - PLATELET COUNT 257 10^3/uL (130-450); RED BLOOD COUNT 5.12 10^6/uL (4.70-6.10); RED CELL DISTRIBUTION WIDTH 13.8 % (12.0-15.0); WHITE BLOOD COUNT 14.9 x10^3/uL (4.8-10.8)
[2021-02-04 19:27] LABS: MUDS CUTOFF CONCENTRATIONS CUTOFF CONC BELOW:
[2021-02-04 19:35] LABS: BILIRUBIN,URINE NEGATIVE (NEGATIVE); GLUCOSE, URINE (UA) NEGATIVE (NEGATIVE); KETONES,URINE (UA) NEGATIVE (NEGATIVE); LEUKOCYTE ESTERASE, URINE NEGATIVE (NEGATIVE); NITRITE,URINE NEGATIVE (NEGATIVE); OCCULT BLOOD,URINE NEGATIVE (NEGATIVE); PH,URINE 5.5 PH (5.0-7.5); PROTEIN,URINE NEGATIVE (NEGATIVE); UROBILINOGEN,URINE 0.2 (NORMAL) E.U./dL (NORMAL)
[2021-02-04 19:36] LABS: CLARITY,URINE CLEAR (CLEAR)
[2021-02-04 19:36] LABS: ACETAMINOPHEN 28 ug/mL (10-30); ALBUMIN 4.3 g/dL (3.2-5.5); ALBUMIN/GLOBULIN RATIO 1.2 (1.0-2.2); ALKALINE PHOSPHATASE 91 IU/L (42-121); ALT ALANINE AMINOTRANSFERASE 15 IU/L (10-60); AST ASPARTATE AMINOTRANSFERASE 14 IU/L (10-42); BILIRUBIN,TOTAL 0.5 mg/dL (0.2-1.0); BUN - BLOOD UREA NITROGEN 12 mg/dL (6-20); CALCIUM 9.7 mg/dL (8.5-10.3); CARBON DIOXIDE - CO2 26 mmol/L (21-32); CHLORIDE 108 mmol/L (101-111); CREATININE 0.7 mg/dL (0.6-1.2); ETOH - ETHANOL < 5.0 mg/dL; GFR - MDRD 120 (>89); GLUCOSE 134 mg/dL (70-100); LIPASE 37 U/L (22-51); POTASSIUM 3.6 mmol/L (3.5-5.0); SALICYLATE < 6.0 mg/dL; SODIUM 141 mmol/L (135-145); TOTAL PROTEIN 7.9 g/dL (6.7-8.2)
[2021-02-04 19:44] LABS: AMPHETAMINE SCREEN,URINE NEGATIVE (NEGATIVE); BARBITURATE SCREEN,UR NEGATIVE (NEGATIVE); BENZODIAZEPINES SCREEN, URINE NEGATIVE (NEGATIVE); COCAINE SCREEN URINE NEGATIVE (NEGATIVE); METHADONE SCREEN, URINE NEGATIVE (NEGATIVE); METHAMPHETAMINES SCREEN, URINE NEGATIVE (NEGATIVE); OPIATE SCREEN, URINE NEGATIVE (NEGATIVE); OXYCODONE SCREEN, URINE NEGATIVE (NEGATIVE); PROPOXYPHENE SCREEN, URINE NEGATIVE (NEGATIVE); THC CANNABINOID SCREEN, URINE NEGATIVE (NEGATIVE); TRICYCLIC ANTIDEPRESSANT,URINE NEGATIVE (NEGATIVE)
[2021-02-04 20:19] LABS: B. PARAPERTUSSIS- RESP PCR PAN NOT DETECTED; B. PERTUSSIS- RESP PCR PANEL NOT DETECTED; C. PNEUMONIAE- RESP PCR PANEL NOT DETECTED; CORONAVIRUS 229E-RESP PCR NOT DETECTED; CORONAVIRUS HKU1-RESP PCR NOT DETECTED; CORONAVIRUS NL63-RESP PCR NOT DETECTED; CORONAVIRUS OC43-RESP PCR NOT DETECTED; HUMAN METAPNEUMOVIRUS NOT DETECTED; INFLUENZA A- RESP PCR PANEL NOT DETECTED; INFLUENZA B - RESP PCR PANEL NOT DETECTED; M. PNEUMONIAE- RESP PCR PANEL NOT DETECTED; PARAINFLUENZA VIRUS 1 NOT DETECTED; PARAINFLUENZA VIRUS 2 NOT DETECTED; PARAINFLUENZA VIRUS 3 NOT DETECTED; PARAINFLUENZA VIRUS 4 NOT DETECTED; RHINOVIRUS/ENTEROVIRUS NOT DETECTED; RSV- RESP PCR PANEL NOT DETECTED; SARS-CoV-2 -RESP PCR PANEL NOT DETECTED
[2021-02-04] MEDS ORDERED: LORazepam 1 MG TABLET PO STA (23:59)
--- NOTE | 2021-02-05 03:59 | TELEPSYCH PHYS NOTE ---
Telepsych Note - CHIEF COMPLAINT/HX OF PRESENT ILLNESS Chief Complaint and History of Present Illness: Chief Complaint: SI HPI: The patient is a 50 yo male with a hx of Schizophrenia who reported to the ER with headaches. He also reported SI with a plan to cut his wrists. When seen by psychiatry, the pt admitted to med noncompliance for the past 2 months. He has used meth on and off but has not used in 6 days. He hears voices constantly preventing him from sleeping. - SI/HI/SELF HARM SI/HI/SELF HARM (CURRENT OR HISTORY OF):: SI (ingested rat poison in 2011) SI/HI/Self Harm Text (Current or History of):: ingested rat poison in 2011 - VIOLENCE/LEGAL/COLLATERAL Violence - Legal - Collateral: Violence: none Legal: burglary-released from penitentiary in Oct 28 after 2 yr stay Collateral: none available - PSYCHIATRIC HX/TREATMENT HX Psychiatric: Anxiety Psychiatric/Treatment Hx Other: 3-4 prior inpatient treatment, last inpt admission in 2016 at [facility]. - DRUG/ALCOHOL HX Substance Use and Type: Meth Substance use/abuse/alcohol text: Meth-last used 6 days ago - MEDICAL HX Does the pt have a hx of MRSA?: No Neurological History: None Eyes, Ears, Nose, Throat: None Cardiovascular: None Respiratory: None Skin: None Endocrine/Autoimmune: None Gastrointestinal: Hepatitis Urinary: None Musculoskeletal: Chronic back pain - HOME MEDICATIONS Home Meds (as last confirmed): none - ALLERGIES Allergies (as last confirmed): Allergies Allergy/AdvReac Type Severity Reaction Status Date / Time No Known Drug Allergies Allergy Verified 02/04/21 19:04 - FAMILY PSYCH/SUICIDE/SOCIAL HX-MENTAL Family - Suicide - Social Hx and Mental Status Exam: Family Psychiatric History: none. Social History: single, live alone. Employment: none Education: +GED Stressors: see HPI History: none Abuse: pt denied. Mental Status Examination: Attitude and behavior: cooperative Speech: WNL Affect and mood: sad affect and mood Association and thought processes: linear Thought content: no delusions, + SI, no HI Perception: + auditory hallucinations Sensorium, memory, and orientation: AAOx3 Intellectual functioning: average Insight and judgment: impaired - PATIENT PROBLEM LIST (1) Schizophrenia Qualifiers: Schizophrenia type: paranoid schizophrenia Qualified Code(s): F20.0 - Paranoid schizophrenia Impression: The patient is a 50-year-old male with a hx of Schizophrenia who presents to the ER with SI and +AH. The pt has been abusing meth and he has not been compliant with psych meds for the past 2 months. Inpatient care recommended. The pt is agreeable - TREATMENT/PHARMACOLOGICAL RECOMMENDATION Treatment - Pharmacological - Therapy Recommendations: Admit as voluntary. Start Zyprexa 5 mg PO BID. - TIME SPENT & PROVIDER LOCATION Telepsych consultation conducted via videoconferencing: Yes List names and roles of persons who participated in consult: Mick Bullock M.D. [facility] Telepsych Provider Location: [place] Time Telepsych consult began: 03:05 Time Telepsych consult completed: 03:40
[2021-02-05] MEDS ORDERED: KETOROLAC 30 MG/ML VIAL IM STA (04:00)
--- NOTE | 2021-02-05 04:00 | ED Physician Documentation ---
ED Addendum - Addendum Addendum: 02/05/21 03:57 d/w Dr. Bullock, telepsychiatrist . Patient is schizophrenic, meth user abstinent for the past week. Hearing voices constantly, can't sleep at night. Recommend Zyprexa 5 mg bid and inpatient treatment.
[2021-02-05] MEDS: OLANZapine ODT 5 MG TABLET TL SCH ×2 (08:08→20:53)
[2021-02-05] MEDS ORDERED: IBUPROFEN 800 MG TABLET PO STA (19:11)
[2021-02-05 23:58] VITALS: BP 118/72
== END 2021-02-05 23:59 ==
LOC: ED 18:48
DX: F20.0 Paranoid schizophrenia (principal); F17.200 Nicotine dependence, unspecified, uncomplicated; Z20.822 Contact with and (suspected) exposure to COVID-19
CPT/HCPCS: 36415; 80053; 80306; 80307; 81003; 83690; 84443; 85025; 87631; 99283; 99285; A9270; G0425; G0480; J8499; Q3014; 0202U; 80320; 80329; 81001; 87086

== ENCOUNTER 2021-06-30 12:27 | Emergency (ER) | payer MEDICARE, MEDICAID ==
[2021-06-30] MEDS ORDERED: IBUPROFEN 600 MG TABLET PO STA (12:43)
[2021-06-30] MEDS ORDERED: ACETAMINOPHEN 325 MG TABLET PO STA (12:43)
--- NOTE | 2021-06-30 12:49 | ED Physician Documentation ---
History of Present Illness - Stated complaint Stated Complaint: BACK PX - Chief complaint Chief Complaint: Back Pain - History obtained from History obtained from: Patient - Additonal information Additional information: Is a 51-year-old male specifically history of schizophrenia and prior meth use several visits for back and neck pain at the past who presents with low back pain. Pain is been gradually progressive, he denies any trauma or acute injury or acute lifting. Pain is better lower back some radiation into the legs at times. There is no saddle anesthesia, no bowel or bladder changes, no lower extremity weakness or paresthesias, no fever. He denies any recent meth use, denies IV drug use. States he is compliant with his medication for schizophrenia including olanzapine. He is currently homeless, living on the [address] and is walking long distances throughout the day and sleeping on the ground. He does not have access to [id number] medication, heating pad or other supportive measures. Review of Systems Constitutional: reports: Reviewed and negative Eyes: reports: Reviewed and negative Ears: reports: Reviewed and negative Nose: reports: Reviewed and negative Throat: reports: Reviewed and negative Cardiac: reports: Reviewed and negative Respiratory: reports: Reviewed and negative GI: reports: Reviewed and negative : reports: Reviewed and negative Skin: reports: Reviewed and negative Musculoskeletal: reports: Back pain. denies: Neck pain, Extremity pain, Joint pain, Extremity swelling, Joint swelling, Pain with weight bearing Neurologic: reports: Reviewed and negative Psychiatric: reports: Hallucinations, Delusions. denies: Depressed, Suicidal, Homicidal (Chronic visual and auditory hallucinations secondary to schizophrenia.), Anxiety Endocrine: reports: Reviewed and negative Immunocompromised: reports: Reviewed and negative PD PAST MEDICAL HISTORY - Past Medical History Cardiovascular: None Respiratory: None Neuro: None Endocrine/Autoimmune: None GI: Hepatitis : None HEENT: None Psych: Anxiety Musculoskeletal: Chronic back pain Derm: None - Past Surgical History Past Surgical History: Yes - Present Medications Home Medications: Ambulatory Orders Medication Instructions Recorded Confirmed Acetaminophen [Tylenol] 650 mg PO Q6H PRN #30 tab 06/30/21 Ibuprofen [Motrin] 1 tablet PO Q8H PRN #30 tablet 06/30/21 - Allergies Allergies/Adverse Reactions: Allergies Allergy/AdvReac Type Severity Reaction Status Date / Time No Known Drug Allergies Allergy Verified 02/04/21 19:04 - Social History Does the pt smoke?: Yes Smoking Status: Current every day smoker Does the pt drink ETOH?: No Does the pt have substance abuse?: No - Immunizations Immunizations are current?: Yes - POLST Patient has POLST: No PD ED PE NORMAL - Vitals Vital signs reviewed: Yes - General General: Alert and oriented X 3, No acute distress, Well developed/nourished - HEENT HEENT: Atraumatic, Moist mucous membranes, Pharynx benign - Neck Neck: Supple, no meningeal sign, No bruit - Cardiac Cardiac: RRR, No murmur, No gallop, No rub, Strong equal pulses - Respiratory Respiratory: No respiratory distress, Clear bilaterally - Abdomen Abdomen: Normal bowel sounds, Soft, Non tender, Non distended - Male Male : Deferred - Rectal Rectal: Deferred - Back Back: No spinal TTP, Other (Lumbar paravertebral muscle tenderness to palpation bilaterally, mild, no bony spine tenderness.) - Derm Derm: Normal color, Warm and dry, No rash - Extremities Extremities: No deformity, No tenderness to palpate, Normal ROM s pain, No edema, No calf tenderness / cord, Other (Normal gait, no ataxia, no foot drop or drag.) - Neuro Neuro: Alert and oriented X 3, No motor deficit, No sensory deficit, Normal speech Eye Opening: Spontaneous Motor: Obeys Commands Verbal: Oriented GCS Score: 15 - Psych Psych: Other (Patient is pleasant and conversant though when I leave the room he does start yelling at nonexistent people in the room. I return and ask if he is okay and he states I am sorry has just seeing people in the room, I know they are not there.He subsequently calms down and remains pleasant.) Results - Vitals Vitals: Vital Signs - 24 hr 06/30/21 12:29 Temperature 36.8 C Oxygen O2 Source Room air PD MEDICAL DECISION MAKING - ED course Complexity details: reviewed old records, d/w patient ED course: Who presented with lower back pain today. No acute injury or trauma and pain is consistent with acute on chronic muscle strain. He has no red flag symptoms or physical exam findings suggestive of cauda equina syndrome or acute infection. Some mild bilateral lumbar paravertebral muscle tenderness but no bony spine tenderness. His gait is normal, his reflexes are normal and his lower extremity strength is normal. I recommended ibuprofen and Tylenol I provided prescriptions for these. If he has access to a heating pad that may be helpful. I encouraged him to try to decrease his activity the next couple of days to allow time for the back to rest though he does not need to engage in bedrest. He unfortunately is homeless and is moving about throughout the day most of the time as well as sleeping on the hard ground at nighttime therefore he has limited access to routine supportive measures. I encouraged him to follow-up with his primary care provider in 2 to 3 weeks if he has had no improvement or if he had worsening back pain, weight loss, fever or otherwise new concerns. Departure - Departure Disposition: Home, Self Care Clinical Impression: Back pain Condition: Good Instructions: ED Low Back Pain Injury, ED Chronic Pain Management Prescriptions: Ibuprofen [Motrin] 1 tablet PO Q8H PRN #30 tablet PRN Reason: PAIN &/OR FEVER Acetaminophen [Tylenol] 650 mg PO Q6H PRN #30 tab PRN Reason: Pain Comments: You have acute on chronic lower back pain. This is likely due to muscle strain. I recommend trying to rest for a few days, try to avoid lifting or walking long distances, but light exercise is okay. If you have access to a heating pad, this can help with the pain. You can take ibuprofen and tylenol for this pain. Follow-up with your primary care provider in 1 to 2 weeks if you have no improvement in your pain.
== END 2021-06-30 13:00 | disposition home or self-care (01) ==
LOC: ED 12:27
DX: M54.5 Low back pain (principal); Z59.0 Homelessness; F20.9 Schizophrenia, unspecified; F17.200 Nicotine dependence, unspecified, uncomplicated
CPT/HCPCS: 99282; 99283; A9270